=== PATIENT | female | born 1955 | race Caucasian/White ===

== ENCOUNTER 2017-06-02 12:59 | Emergency (ER) | payer OTHER ==
[~2017-06-02] VITALS: Ht 152.4 cm; Wt 77.3 kg
[2017-06-02 13:01] VITALS: TEMP 98.5
[2017-06-02] MEDS ORDERED: ESTRACE2 MG PO (13:43)
[2017-06-02] MEDS ORDERED: RELAFEN 50500 MG/TAB PO (13:43)
[2017-06-02] MEDS ORDERED: TYLENOL W/COD1 UDTAB PO (13:44)
[2017-06-02 13:48] LABS: BASO % 0.2 % (0.0-2.0); EOS # 0.1 (0.0-0.7); EOS % 0.5 % (0-4.0); GRAN # 7.5 (1.4-6.5); GRAN % 67.4 % (42.2-75.2); HEMATOCRIT 40.1 % (37.0-47.0); HEMOGLOBIN 13.9 g/dl (12.5-16.0); LYMPH # 2.5 (1.2-3.4); LYMPH % 22.5 % (20.0-51.0); MEAN CELL VOLUME 93 fl (80.0-100.0); MEAN CORPUSCULAR HEMOGLOBIN 32 pg (27.0-31.0); MEAN CORPUSCULAR HGB CONC 35 g/dl (33.0-37.0); PLATELET COUNT 211 K/mm3 (130-400); RED BLOOD COUNT 4.31 M/mm3 (4.10-5.30); REDCELL DISTRIBUTION WIDTH-CV 12.9 % (11.5-14.5)
[2017-06-02 14:59] LABS: ALBUMIN 3.9 gm/dL (3.5-5.0); BILIRUBIN,TOTAL 0.7 mg/dL (0.0-1.0); CREATININE, serum 0.69 mg/dL (0.52-1.25); POTASSIUM 4.2 mmol/L (3.4-5.0); TOTAL PROTEIN 7.7 gm/dL (6.4-8.2)
[2017-06-02 15:22] LABS: COLLECTION METHOD CLEAN CATCH
[2017-06-02] MEDS ORDERED: NORCO 325 MG-51 TAB PO (15:25)
[2017-06-02 15:33] LABS: MUCOUS Present /lpf; PH 5 (5-8); SQUAMOUS EPITHELIAL 0-2 /hpf; URINE APPEARANCE Clear; URINE BACTERIA None Seen /hpf; URINE BILIRUBIN Negative (NEGATIVE); URINE BLOOD Negative (NEGATIVE); URINE COLOR Yellow; URINE GLUCOSE Negative (NEGATIVE); URINE KETONE Trace (NEGATIVE); URINE LEUKOCYTE ESTERASE Negative (NEGATIVE); URINE NITRATE Negative (NEGATIVE); URINE PROTEIN(semi-quant) Negative (NEGATIVE); URINE RBC 0-2 /hpf; URINE UROBILINOGEN Negative (NEGATIVE)
[2017-06-02 16:13] VITALS: BP 116/87; PULSE 75
== END 2017-06-02 16:10 | disposition home or self-care (01) ==
LOC: COL.ER 12:59
PROVIDERS: Emergency Medicine
DX: R07.89 Other chest pain (principal)

== ENCOUNTER → 2018-02-07 | Outpatient (CLI) | payer OTHER ==
[~2018-02-07] MED LIST: ESTRACE2 MG PO; NORCO 325 MG-51 TAB PO; RELAFEN 50500 MG/TAB PO; TYLENOL W/COD1 UDTAB PO
== END ==
LOC: COL.LAB 16:21
DX: Z01.812 Encounter for preprocedural laboratory examination (principal); M19.90 Unspecified osteoarthritis, unspecified site

== ENCOUNTER 2021-05-29 07:52 | Day surgery (SDC) | payer MEDICARE ==
[~2021-05-29] VITALS: Ht 152.4 cm; Wt 85.8 kg
[2021-05-29 08:42] VITALS: BP 142/67; PULSE 78; TEMP 98.3
[2021-05-29] MEDS ORDERED: LUNESTA3 MG PO (09:38)
[2021-05-29] MEDS ORDERED: EFFEXOR 3737.5 MG/TA PO (09:42)
[2021-05-29] MEDS ORDERED: ESTRACE 1MG1 MG/TAB PO (09:42)
[2021-05-29] MEDS ORDERED: PROTONIX 40MG T40 MG PO (09:43)
[2021-05-29] MEDS ORDERED: ESTRACE0.5 MG PO (09:44)
[2021-05-29] MEDS ORDERED: FLONASEALLERGY NS (09:45)
[2021-05-29] MEDS ORDERED: NUTRAFOL PO (09:46)
[2021-05-29] MEDS ORDERED: METAMUCIL GUMMIES PO (09:47)
[2021-05-29] MEDS ORDERED: ULTRAM 50MG TAB50 MG PO (09:48)
[2021-05-29 10:46] VITALS: BP 120/68; PULSE 77; TEMP 97.2
--- NOTE | 2021-05-29 10:46 | NUR ---
The patient arrived back to [facility] from the operating room at this time. The patient appears alert and oriented and denies any pain or nausea at this time. The patient's dressing to her right foot appears clean, dry and intact. Post operative vital signs were started at this time. A walking boot was placed on the patient's right foot by Dr. Lomas. The patient agrees to try some diet sprite. Call light is within reach. The patient denies any further needs at this time.
[2021-05-29 11:01] VITALS: BP 124/54; PULSE 67
--- NOTE | 2021-05-29 11:01 | NUR ---
The patient appears to be tolerating the sprite well and denies wanting anything further to eat or drink at this time. The patient's daughter was called by Dr. Lomas post operatively and is heading back to the hospital to pick the patient up.
[2021-05-29 11:16] VITALS: BP 126/59; PULSE 68
--- NOTE | 2021-05-29 11:16 | NUR ---
The patient has finished her sprite and denies wanting anything further to eat or drink. The patient's IV to her left anecubital was removed and a pressure dressing was applied to the site. The patient is going to get dressed when her daughter returns.
--- NOTE | 2021-05-29 11:25 | NUR ---
Discharge instrucitons were reviewed with the patient and her daughter at this time. They both verbalized understanding and have no questions for the nurse at this time. The patient is dressed and ready to be escorted out.
--- NOTE | 2021-05-29 11:35 | NUR ---
The patient was escorted out via wheelchair to a private vehicle by SHLOMO Barksdale. The patient's belongings and discharge paperwork were sent with her. The patient's daughter is present to drive her home.
== END 2021-05-29 11:35 | disposition home or self-care (01) ==
LOC: SDCO 07:52
DX: M77.31 Calcaneal spur, right foot (principal); M72.2 Plantar fascial fibromatosis; G47.00 Insomnia, unspecified; K29.70 Gastritis, unspecified, without bleeding; F32.A Depression, unspecified; F41.9 Anxiety disorder, unspecified; K58.9 Irritable bowel syndrome, unspecified; Z79.899 Other long term (current) drug therapy
CPT/HCPCS: J0690; J1885; J2405; J2704; J3010; J3301; J7120; L4386